=== PATIENT | female | born 1955 | race Caucasian/White ===

== ENCOUNTER 2016-10-17 01:38 | Emergency (ER) | payer MEDICAID ==
[~2016-10-17] VITALS: Ht 157.5 cm; Wt 53.3 kg
[~2016-10-17 01:38] MED LIST: PRIM50TA34 PO
[2016-10-17] MEDS ORDERED: IBUPROFEN 200 MG TABLET PO ONE (02:00)
[2016-10-17] MEDS ORDERED: HYDROcodone/APAP 5/325 TABLET PO ONE (02:00)
[2016-10-17] MEDS ORDERED: HYDROcodone/APAP 5/325 TABLET ONE (02:20)
[2016-10-17] MEDS ORDERED: IBUPROFEN 200 MG TABLET ONE (02:20)
[2016-10-17 03:17] VITALS: BP 120/71
== END 2016-10-17 03:20 | disposition home or self-care (01) ==
LOC: ED 03:02
DX: S93.492A Sprain of other ligament of left ankle, initial encounter (principal); X50.1XXA Overexertion from prolonged static or awkward postures, initial encounter; Y93.89 Activity, other specified; Y92.488 Other paved roadways as the place of occurrence of the external cause; Y99.8 Other external cause status
CPT/HCPCS: 99284